=== PATIENT | female | born 1985 | race Caucasian/White ===

== ENCOUNTER 2021-05-26 15:26 | Outpatient (CLI) | payer MEDICAID, SELFPAY ==
[2021-05-26 16:22] LABS: Absolute Lymphocyte Count 2.86 X10^3/uL (0.83-4.51); Absolute Neutrophil Count 3.7 X10^3/uL (2.0-7.7); Basophil# 0.06 X10^3/uL; Basophil% 0.8 % (0-1); Eosinophil# 0.19 X10^3/uL; Eosinophils% 2.6 % (0-5); Hematocrit 47.1 % (37-47); Hemoglobin 16.2 g/dL (12.0-15.0); Lymphocyte # 2.86 X10^3/ul (0.83-4.51); Lymphocyte % 38.4 % (19-41); Mean Corp Hgb Conc 34.4 g/dL (32-36); Mean Corpuscular Hgb 33.1 pg (27.0-32.0); Mean Corpuscular Volume 96.3 fL (81-99); Mean Platelet Vol. 10.3 fl (6.2-12.0); Monocyte% 8.1 % (0-10); NRBC Flagged by Analyzer 0 % (0-5); Neutrophil # 3.72 X10^3/uL (2.7-7.7); Neutrophil % 49.8 % (47-70); Platelet Count 245 K/mm3 (150-450); RBC Distribution Width CV 12.3 % (11.6-14.6); Red Blood Count 4.89 M/mm3 (4.2-5.4); White Blood Count 7.5 K/mm3 (4.4-11.0)
[2021-05-26 16:42] LABS: Erythrocyte Sedimentation Rate 8 mm/hr (0-30)
[2021-05-26 16:47] LABS: Prothrombin Time (Protime)PT. 12.8 SECONDS (11.7-14.9)
[2021-05-26 17:06] LABS: ALB/GLOB Ratio 1.1 RATIO (0.9-2.4); AST(SGOT) 15 U/L (15-37); Alanine Aminotransfer ALT/SGPT 23 U/L (13-56); Albumin, Serum 4.5 g/dL (3.2-5.0); Alkaline Phosphatase 54 U/L (45-117); Anion Gap 7 (5-15); BUN 13 mg/dL (7-18); BUN/Creat Ratio 17.9 RATIO (10-20); CRP < 2.90 mg/L (0.0-3.0); Calcium,Total 9.1 mg/dL (8.5-10.1); Chloride 106 mmol/L (98-107); Creatinine, Serum 0.73 mg/dL (0.55-1.02); EST Glomerular Filtration Rate 96 mL/min (>60); Est Glom Filt Rate - Afr Amer 116 mL/min (>60); Ferritin 82 ng/mL (8-252); Globulin 4.2 g/dL (2.2-4.2); Glucose 89 mg/dL (74-106); LDH 211 U/L (84-246); Potassium 3.7 mmol/L (3.5-5.1); Protein, Total 8.7 g/dL (6.4-8.2); Sodium Level 140 mmol/L (136-145)
[2021-05-27 08:45] LABS: HIV - WCH Non-Reactive (Nonreactive)
[2021-05-28 14:09] LABS: Anti-Centromere B Ab <0.2 AI (0.0-0.9); Anti-Chromatin <0.2 AI (0.0-0.9); Anti-Jo <0.2 AI (0.0-0.9); Anti-Scleroderma-70 AB <0.2 AI (0.0-0.9); RNP Ab <0.2 AI (0.0-0.9); SJOGREN'S Anti-SS-A test < 0.2 AI (0.0-0.9); SJOGREN'S Anti-SS-B test < 0.2 AI (0.0-0.9); Smith Ab <0.2 AI (0.0-0.9)
[2021-05-28 14:42] LABS: Anti-dsDNA Ab 1 IU/mL (0-9)
[2021-05-28 20:46] LABS: Anti-Mitochondrial AB <20.0 Units (0.0-20.0)
[2021-05-28 22:06] LABS: QNTFERON TB Mitogen Value > 10.00 IU/mL (.); QNTFERON TB Nil Value 0.01 IU/mL (.); QNTFERON TB1+ Ag Value 0.01 IU/mL (.); QNTFERON TB2+ Ag Value 0.01 IU/mL (.)
[2021-05-28 22:45] LABS: QNTIFERON TB Positive Criteria Negative (Negative)
[2021-05-31 19:07] LABS: Angiotensin Convert Enzyme 42 U/L (14-82); Cytoplasmic Ab (C-ANCA) <1:20 titer (Neg:<1:20); Endomysial Antibody IgA Negative (Negative); HEPATITIS B SURFACE AG Negative (Negative); Hepatitis A IgM Antibody Negative (Negative); Hepatitis B Core AB IgM Negative (Negative); Immunoglobulin A 228 mg/dL (87-352)
[2021-05-31 20:45] LABS: Anti-Smooth Muscle ABS 1 Units (0-19); Copper, Serum or Plasma 104 ug/dL (80-158); Haptoglobin 163 mg/dL (33-278); Hep C Antibodies >11.0 s/co ratio (0.0-0.9); Perinuclear Ab (P-ANCA) <1:20 titer (Neg:<1:20); t-Transglutaminase IgA <2 U/mL (0-3)
== END 2021-05-26 23:59 | disposition home or self-care (01) ==
LOC: LAB 15:38
PROVIDERS: PCP Nurse Practitioner Family; Visit Provider Internal Medicine Gastroenterology
DX: B18.2 Chronic viral hepatitis C (principal); K21.9 Gastro-esophageal reflux disease without esophagitis
CPT/HCPCS: 36415; 80053; 80074; 82164; 82390; 82525; 82728; 82784; 83010; 83516; 83615; 85025; 85610; 85652; 86140; 86225; 86235; 86255; 86256; 86480; 86703

== ENCOUNTER 2021-06-23 15:20 | Outpatient (CLI) | payer MEDICAID, SELFPAY ==
[2021-06-23 17:21] LABS: Hepatitis C Antibody Preliminary Reactive (Nonreactive)
[2021-06-27 00:06] LABS: HCV Quant. RNA PCR 830 IU/mL (.)
[2021-06-27 10:45] LABS: HCV log 10 2.919 (.)
== END 2021-06-23 23:59 | disposition home or self-care (01) ==
LOC: LAB 15:22
PROVIDERS: PCP Nurse Practitioner Family; Referring Provider Internal Medicine Gastroenterology; Visit Provider Internal Medicine Gastroenterology
DX: B18.2 Chronic viral hepatitis C (principal)
CPT/HCPCS: 36415; 86803; 87522; 87902

== ENCOUNTER → 2021-11-10 | Outpatient (CLI) | payer MEDICAID, SELFPAY ==
[2021-11-12 20:07] LABS: HCV Quant. RNA PCR HCV Not Detected IU/mL (.)
== END | disposition home or self-care (01) ==
PROVIDERS: PCP Nurse Practitioner Family; Referring Provider Nurse Practitioner Adult Health; Visit Provider Nurse Practitioner Adult Health
DX: B18.2 Chronic viral hepatitis C (principal)
CPT/HCPCS: 36415; 87522

== ENCOUNTER → 2022-04-21 | Outpatient (CLI) | payer MEDICAID, SELFPAY ==
[2022-04-21 12:52] LABS: Absolute Lymphocyte Count 2.08 X10^3/uL (0.83-4.51); Basophil# 0.06 X10^3/uL; Basophil% 0.5 % (0-1); Eosinophils% 0.9 % (0-5); Hematocrit 47.1 % (37-47); Hemoglobin 15.7 g/dL (12.0-15.0); Lymphocyte # 2.08 X10^3/ul (0.83-4.51); Lymphocyte % 18.8 % (19-41); Mean Corp Hgb Conc 33.3 g/dL (32-36); Mean Corpuscular Hgb 32.8 pg (27.0-32.0); Mean Corpuscular Volume 98.3 fL (81-99); Mean Platelet Vol. 9.9 fl (6.2-12.0); Monocyte% 7.2 % (0-10); NRBC Flagged by Analyzer 0 % (0-5); Neutrophil # 7.97 X10^3/uL (2.7-7.7); Neutrophil % 72.2 % (47-70); Platelet Count 229 K/mm3 (150-450); RBC Distribution Width CV 12.6 % (11.6-14.6); Red Blood Count 4.79 M/mm3 (4.2-5.4); White Blood Count 11.1 K/mm3 (4.4-11.0)
[2022-04-21 13:59] LABS: HIV - WCH Non-Reactive (Nonreactive); Hepatitis B Surface Antigen Non-Reactive (Nonreactive); Hepatitis C Antibody REACTIVE (Nonreactive); Rubella IgG Reactive (Nonreactive); Syphilis Antibodies Non-reactive
[2022-04-22 20:07] LABS: V-Zoster IgG (Immunity) 544 index (Immune >165)
[2022-04-23 06:08] LABS: Chlamydia By Nucleic Acid AMP Negative (Negative)
[2022-04-23 10:23] LABS: Gonococcus By Nucleic Acid AMP Negative (Negative)
[2022-04-23 20:07] LABS: HCV Quant. RNA PCR HCV Not Detected IU/mL (.)
[2022-04-26 16:19] LABS: HPV APTIMA, High Risk Negative (Negative)
== END | disposition home or self-care (01) ==
LOC: WOBLAB 12:18
PROVIDERS: PCP Nurse Practitioner Family; Visit Provider Obstetrics & Gynecology
DX: Z34.81 Encounter for supervision of other normal pregnancy, first trimester (principal); K73.2 Chronic active hepatitis, not elsewhere classified
CPT/HCPCS: 36415; 85025; 86703; 86762; 86780; 86787; 86803; 87086; 87340; 87491; 87522; 87591; 87624; 88175; G0145

== ENCOUNTER → 2022-08-24 | Outpatient (CLI) | payer MEDICAID, SELFPAY ==
[2022-08-24 15:19] LABS: Hematocrit 32.5 % (37-47); Hemoglobin 10.7 g/dL (12.0-15.0); Mean Corp Hgb Conc 32.9 g/dL (32-36); Mean Corpuscular Hgb 32.7 pg (27.0-32.0); Mean Corpuscular Volume 99.4 fL (81-99); Mean Platelet Vol. 9.8 fl (6.2-12.0); Platelet Count 223 K/mm3 (150-450); RBC Distribution Width CV 13.4 % (11.6-14.6); RBC Distribution Width SD 48.6 fl (35.1-43.9); Red Blood Count 3.27 M/mm3 (4.2-5.4); White Blood Count 9.7 K/mm3 (4.4-11.0)
[2022-08-24 16:00] LABS: Glucose Challenge Gest 1H 50g 152 mg/dL (70-140)
[2022-08-24 16:27] LABS: Syphilis Antibodies Non-reactive
== END | disposition home or self-care (01) ==
LOC: WOBLAB 14:52
PROVIDERS: PCP Nurse Practitioner Family; Visit Provider Obstetrics & Gynecology
DX: Z34.82 Encounter for supervision of other normal pregnancy, second trimester (principal)
CPT/HCPCS: 36415; 82950; 85027; 86780

== ENCOUNTER → 2022-08-31 | Outpatient (CLI) | payer MEDICAID, SELFPAY ==
[2022-08-31 09:15] LABS: Glucose GTT-Gestation. Fasting 84 mg/dL (<105)
[2022-08-31 10:16] LABS: Glucose GTT-Gestational 1 Hr 157 mg/dL (<190)
[2022-08-31 11:26] LABS: Glucose GTT-Gestational 2 Hr 132 mg/dL (<165)
[2022-08-31 12:21] LABS: Glucose GTT-Gestational 3 Hr 58 L (<145)
== END | disposition home or self-care (01) ==
LOC: WOBLAB 08:35
PROVIDERS: PCP Nurse Practitioner Family; Visit Provider Obstetrics & Gynecology
DX: O24.912 Unspecified diabetes mellitus in pregnancy, second trimester (principal); Z3A.00 Weeks of gestation of pregnancy not specified
CPT/HCPCS: 36415; 82951; 82952

== ENCOUNTER → 2022-10-26 | Outpatient (CLI) | payer MEDICAID, SELFPAY ==
[2022-10-27 21:07] LABS: HCV Quant. RNA PCR HCV Not Detected IU/mL (.)
== END | disposition home or self-care (01) ==
LOC: WOBLAB 11:39
PROVIDERS: PCP Nurse Practitioner Family; Visit Provider Obstetrics & Gynecology
DX: B18.2 Chronic viral hepatitis C (principal)
CPT/HCPCS: 36415; 87522

== ENCOUNTER 2022-10-28 19:55 | Outpatient (CLI) | payer MEDICAID, SELFPAY ==
[2022-10-28 20:16] VITALS: BP 124/66; PULSE 74; PULSE 85; TEMP 37.3; O2SAT 97
[2022-10-28 20:27] VITALS: BMI 28.4
[2022-10-28 20:52] LABS: Color, Urine Yellow (Yellow); Glucose, Dipstick Normal (Normal); Ketone-Dipstick 50 mg/dl (Negative); Leukocyte Esterase-Dipstick Negative /ul (Negative); Nitrite-Dipstick Negative (Negative); Occult Blood-Urine Negative /ul (Negative); Protein-Dipstick Negative (Negative); Urine Bilirubin Dipstick Negative (Negative); Urine Clarity Clear (Clear); Urine Urobilinogen Normal (Normal)
[2022-10-28 21:21] LABS: ROM Internal Control Test YES-OK TO RESULT pt. (Internal QC); ROM Patient Test Negative (Negative); Record Kit Lot#, ROM+ K1374
--- NOTE | 2022-10-28 23:02 | OB.TRI.NOTE ---
HPI - General General Date of Service: 10/28/22 HPI Narrative MEGGAN FITZGERALD, is a 37 F who [facility] with contractions [facility] History (Updated 10/28/22 @ 23:[address] Nico Aguilera MD) Anxiety attack Cold sore Drug abuse in remission Herpes simplex Major depressive disorder, recurrent, moderate Metabolic syndrome Unspecified viral hepatitis C without hepatic coma Home Medications fluoxetine 10 mg tablet See Rx Instructions PO DAILY 05/26/21 [History Last Taken Unknown] hydroxyzine pamoate 25 mg capsule (Vistaril) See Rx Instructions PO .COMPLEX 05/26/21 [History Last Taken Unknown] valacyclovir 500 mg tablet 500 mg PO BID PRN 05/26/21 [History Last Taken Unknown] rtnghrxi-ebn-Zy-FA 1 mg tablet 1 tab PO DAILY 10/28/22 [History Last Taken 10/27/22 21:00] Allergy/AdvReac Type Severity Reaction Status Date / Time No Known Allergies Allergy Verified 10/28/22 20:27 Family History (Updated 05/26/21 @ 08:15 by Ada Harp) Aunt Cancer Sister Hypertension Surgical History (Updated 05/26/21 @ 08:15 by Ada Harp) H/O breast augmentation Social History (Updated 05/26/21 @ 08:17 by Ada Harp) number of children: 4 Smoking Status: Current every day smoker tobacco type: cigarettes alcohol intake: current alcohol intake frequency: holidays/special occasions only substance use type: does not use caffeine: Yes NST FHR Rate Baby A Baseline: 130 Variability:: Moderate Accelerations:: 15 x 15 Decelerations:: None NST Reactive:: Yes Uterine Activity:: Every 3 to 8 minutes Assessment & Plan (1) : PLAN: Called by nursing patient with contractions leakage of fluid. Informed by nursing that ROM negative. Patient overall comfortable in bed but with contractions. Patient seen and examined resting comfortably in bed contractions palpate mild. Per nursing cervical exam unchanged, previously checked in the office on Monday with same cervical exam. Educated patient on findings discussed with patient and partner options for repeat cervical exam versus at home monitoring, lives within 30 minutes of the hospital. Offered repeat cervical exam but patient declines at this time wishes to DC home.
== END 2022-10-28 23:12 | disposition home or self-care (01) ==
LOC: WPOUT 20:00 → WP 20:01
PROVIDERS: PCP Nurse Practitioner Family; Visit Provider Obstetrics & Gynecology
DX: O62.4 Hypertonic, incoordinate, and prolonged uterine contractions (principal); F33.1 Major depressive disorder, recurrent, moderate; O98.519 Other viral diseases complicating pregnancy, unspecified trimester; O99.330 Smoking (tobacco) complicating pregnancy, unspecified trimester; O99.340 Other mental disorders complicating pregnancy, unspecified trimester; O42.90 Premature rupture of membranes, unspecified as to length of time between rupture and onset of labor, unspecified weeks of gestation; F17.210 Nicotine dependence, cigarettes, uncomplicated; F41.9 Anxiety disorder, unspecified; B00.9 Herpesviral infection, unspecified; Z3A.00 Weeks of gestation of pregnancy not specified; Z79.899 Other long term (current) drug therapy
CPT/HCPCS: 59025; 59050; 81002; 84112; 99221; G0378

== ENCOUNTER → 2022-11-09 | Outpatient (CLI) | payer MEDICAID, SELFPAY ==
[2022-11-09 15:02] LABS: Hematocrit 38.1 % (37-47); Mean Corp Hgb Conc 34.1 g/dL (32-36); Mean Corpuscular Hgb 33.9 pg (27.0-32.0); Mean Corpuscular Volume 99.5 fL (81-99); Mean Platelet Vol. 10.8 fl (6.2-12.0); Platelet Count 215 K/mm3 (150-450); RBC Distribution Width CV 13.4 % (11.6-14.6); RBC Distribution Width SD 48.1 fl (35.1-43.9); Red Blood Count 3.83 M/mm3 (4.2-5.4); White Blood Count 11.1 K/mm3 (4.4-11.0)
[2022-11-09 15:28] LABS: ALB/GLOB Ratio 0.7 RATIO (0.9-2.4); AST(SGOT) 12 U/L (15-37); Alanine Aminotransfer ALT/SGPT 10 U/L (13-56); Albumin, Serum 2.9 g/dL (3.2-5.0); Alkaline Phosphatase 140 U/L (45-117); Anion Gap 6 (5-15); BUN 8 mg/dL (7-18); BUN/Creat Ratio 17.2 RATIO (10-20); Calcium,Total 9.1 mg/dL (8.5-10.1); Chloride 108 mmol/L (98-107); Creatinine, Serum 0.47 mg/dL (0.55-1.02); EST Glomerular Filtration Rate 159 mL/min (>60); Est Glom Filt Rate - Afr Amer 192 mL/min (>60); Globulin 4.2 g/dL (2.2-4.2); Glucose 69 mg/dL (74-106); Potassium 3.9 mmol/L (3.5-5.1); Protein, Total 7.1 g/dL (6.4-8.2); Sodium Level 136 mmol/L (136-145)
== END | disposition home or self-care (01) ==
PROVIDERS: PCP Nurse Practitioner Family; Referring Provider Obstetrics & Gynecology; Visit Provider Obstetrics & Gynecology
DX: Z34.83 Encounter for supervision of other normal pregnancy, third trimester (principal); Z36.85 Encounter for antenatal screening for Streptococcus B; B19.20 Unspecified viral hepatitis C without hepatic coma
CPT/HCPCS: 36415; 80053; 85027; 87081

== ENCOUNTER 2022-11-25 19:53 | Inpatient (IN) | payer MEDICAID, SELFPAY ==
[2022-11-25] VITALS (11 sets, daily range): BP systolic 119–142; BP diastolic 55–79; PULSE 66–87; TEMP 36.7; O2SAT 91–99; BMI 29.2
[2022-11-25 20:33] LABS: Absolute Lymphocyte Count 1.58 X10^3/uL (0.83-4.51); Absolute Neutrophil Count 11.4 X10^3/uL (2.0-7.7); Basophil# 0.07 X10^3/uL; Basophil% 0.5 % (0-1); Eosinophil# 0.05 X10^3/uL; Eosinophils% 0.4 % (0-5); Hematocrit 40.8 % (37-47); Hemoglobin 13.7 g/dL (12.0-15.0); Lymphocyte # 1.58 X10^3/ul (0.83-4.51); Lymphocyte % 11.2 % (19-41); Mean Corp Hgb Conc 33.6 g/dL (32-36); Mean Corpuscular Hgb 33.2 pg (27.0-32.0); Mean Corpuscular Volume 98.8 fL (81-99); Mean Platelet Vol. 10.6 fl (6.2-12.0); Monocyte% 6.4 % (0-10); NRBC Flagged by Analyzer 0 % (0-5); Neutrophil % 80.7 % (47-70); Platelet Count 205 K/mm3 (150-450); RBC Distribution Width CV 13.5 % (11.6-14.6); RBC Distribution Width SD 48.7 fl (35.1-43.9); Red Blood Count 4.13 M/mm3 (4.2-5.4); White Blood Count 14.1 K/mm3 (4.4-11.0)
[2022-11-25] MEDS: Oxytocin 15 Units/NS 250ml 15 UNITS/250 ML IV.SOLN 83 UNITS IV (20:48)
[2022-11-25] MEDS: Oxytocin 10 UNITS/ML Vial IM (20:48)
--- NOTE | 2022-11-25 21:05 | HP.PCM.OB_ITS ---
History and Physical Date of Admission: 11/25/22 HPI: 37-year-old G6, P4 at 38/2 weeks, CLIFTON 12/07/2022 by first trimester ultrasound, admitted for rupture of membranes in labor. Patient had rupture membranes this evening. Reports regular contractions. Denies vaginal bleeding. Reports movement. Denies headache or vision changes, chest pain or shortness of breath, nausea or vomiting, diarrhea constipation, fevers or chills. complicated by: History of hepatitis C with undetectable viral load, 0.5 cm splenic cyst being followed by Dr. Tay, tobacco use, advanced maternal age, failed 1 hour GTT passed 3hr. Oral HSV. 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 Hepatitis C with undetectable viral load 2. Splenic cyst 3. Depression and anxiety Surgical history: 1. Breast augmentation in 2009 Medications: 1. Fluoxetine 10 mg 2. Hydroxyzine 25 mg as needed 3. vitamin Allergies: No known drug allergies Social history: Reports tobacco use. Denies alcohol or drug use Family history: Noncontributory Review of system: Negative otherwise stated above Physical exam: Vital signs: General: Patient uncomfortable with contractions resting between HEENT: Normal cephalic/atraumatic Cardiorespiratory: No increased effort Abdomen: Soft, nontender, gravid Extremities: No edema Neurologic: No focal deficits Musculoskeletal: Moves all extremities equally Cervical exam: On admission 6 cm and grossly ruptured per RN heart rate: 145/mod kenroy/+accel/intermittent early and late deceleration toco: q2 Assessment/Plan: 37-year-old G6, P4 at 38/2 weeks, [place] 12/07/2022 by first trimester ultrasound, admitted for rupture of membranes and labor. complicated by: History of hepatitis C with undetectable viral load, 0.5 cm splenic cyst being followed by Dr. Tay, tobacco use, advanced maternal age, failed 1 hour GTT passed 3hr. Oral HSV. ?Admit for labor ? GBS negative ? Hepatitis C, stable ? Splenic cyst stable ? Tobacco use. Encourage cessation ? AMA ? Failed 1 hour glucose tolerance test, passed 3-hour. ? History of oral HSV, no outbreak currently
[2022-11-25 21:06] LABS: Syphilis Antibodies Non-reactive
--- NOTE | 2022-11-25 21:13 | EX.PCM.OBRPT ---
Maternal Data Information Final CLIFTON: 11/25/22 Final CLIFTON Source: US <20 weeks Vaginal Delivery Operative Information Date of Procedure: 11/25/22 Pre-Operative Diagnosis: Enriquez intrauterine , rupture of membranes Post-Operative Diagnosis: Enriquez intrauterine , rupture of membranes Surgery / Procedure Performed: Spontaneous Vaginal Delivery Type of Anesthesia: None Estimated Blood Loss: 250cc Findings Description of Procedure: Spontaneous vaginal delivery of viable infant. Nuchal cord x1, unable to reduce, delivered through. Baby to mom. Cord clamped and cut. Spontaneous delivery of placenta. Right labial laceration. Lidocaine injected, hemostatic with [id number] sutures. A Gender: Female (1 minute): 7 (5 minute): 9 Delayed Cord Clamping: Yes Complication Complications: None
[2022-11-26] VITALS (10 sets, daily range): BP systolic 108–143; BP diastolic 55–69; PULSE 60–83; RESP 14–18; TEMP 36.2–36.6; O2SAT 94–96
[2022-11-26] MEDS: Ibuprofen 600 MG Tablet PO ×2 (07:45→16:21)
[2022-11-26] MEDS: Benzocaine/Lanolin/Aloe Vera 1 SPRAY EACH TOPICAL (07:45)
--- NOTE | 2022-11-26 08:03 | EKG12_ITS ---
Test Reason : CHEST TIGHTNESS/SOB ON EXERTION Blood Pressure : / mmHG Vent. Rate : 074 BPM Atrial Rate : 074 BPM P-R Int : 150 ms QRS Dur : 082 ms QT Int : 378 ms P-R-T Axes : 068 072 059 degrees QTc Int : 419 ms Normal sinus rhythm Normal ECG No previous ECGs available Confirmed by EVGENY SANDHU ([id number]), editor continuity and script EDY JUDD ([id number]) on 12/06/2022 9:43:37 AM Referred By: Ursula Aguilera Confirmed By:EVGENY SANDHU
--- NOTE | 2022-11-26 08:06 | PN.OBGYN_ITS ---
Subjective Subjective Patient feeling well overall. Lochia minimal. Reports that when she is up moving around she has a little bit of chest pressure and shortness of breath, however when she is seated and resting she feels comfortable without any issues. Denies any headache or vision changes, no dizziness. Objective Data Objective Data Vital Signs: Vital Signs Temp Pulse Resp BP Pulse Ox O2 Del Method 97.8 F 83 14 125/69 H 96 Room Air 11/26/22 07:51 11/26/22 07:51 11/26/22 07:51 11/26/22 07:51 11/26/22 07:51 11/26/22 07:51 Oxygen Delivery Method Room Air Weight: 74.843 kg Body Mass Index (BMI) 29.2 Intake & Output: Intake and Output for Last 24 Hours 11/24/22 11/25/22 11/26/22 23:59 23:59 23:59 Intake Total 250 / 250 Output Total 250 / 250 Balance -250 / -250 250 / 250 Lab / Micro Data Attestation: I reviewed the patient's lab results. 11/25/22 20:15 Labs: Laboratory Results - last 24 hr 11/25/22 20:15: WBC 14.1 H, RBC 4.13 L, Hgb 13.7, Hct 40.8, MCV 98.8, MCH 33.2 H , MCHC 33.6, RDW Std Deviation 48.7 H, RDW Coeff of Hilary 13.5, Plt Count 205, MPV 10.6, Immature Gran % (Auto) 0.800, Neut % (Auto) 80.7 H, Lymph % (Auto) 11.2 L, [place] % (Auto) 6.4, Eos % (Auto) 0.4, Baso % (Auto) 0.5, Absolute Neuts (auto) 11.4 H, Absolute Lymphs (auto) 1.58, Nucleated RBC % 0, Syphilis Total Ab Non- reactive, Blood Type A POSITIVE, Antibody Screen NEGATIVE Micro: Microbiology 11/26/22 01:15 Urine, Clean Catch Neisseria gonorrhoeae (PCR) - Final Physical Exam Const alert, oriented x3 and no apparent distress HEENT normocephalic Chest inspection of chest normal Resp normal respiratory effort, no retractions, no use of accessory muscles and clear to auscultation bilaterally Cardio regular rate, regular rhythm, no murmurs, no rub and no gallops GI soft to palpation and non-tender Inspection: gravid Back/Spine normal ROM Extremity no pedal edema Skin no rashes or lesions noted Neuro no focal motor deficits and no sensory deficits noted Psych mental status grossly normal, affect normal and speech normal Assessment & Plan (1) Vaginal delivery: PLAN: day 1 status post . Complicated by hepatitis C and splenic cyst. When up moving around patient having some chest pressure and shortness of breath. Exam within normal limits. Oxygen saturation within normal limits. Will get CBC and an EKG. No evidence of PE at this time. If symptoms are persistent, may consider CT angiogram of the chest. Reviewed this with bedside nurse, patient and her partner. All questions answered. (2) Chronic viral hepatitis C:
[2022-11-26 08:23] LABS: Absolute Lymphocyte Count 1.46 X10^3/uL (0.83-4.51); Absolute Neutrophil Count 10.3 X10^3/uL (2.0-7.7); Basophil# 0.05 X10^3/uL; Basophil% 0.4 % (0-1); Eosinophil# 0.03 X10^3/uL; Eosinophils% 0.2 % (0-5); Hematocrit 35.7 % (37-47); Hemoglobin 12.3 g/dL (12.0-15.0); Lymphocyte # 1.46 X10^3/ul (0.83-4.51); Lymphocyte % 11.3 % (19-41); Mean Corp Hgb Conc 34.5 g/dL (32-36); Mean Corpuscular Hgb 33.8 pg (27.0-32.0); Mean Corpuscular Volume 98.1 fL (81-99); Mean Platelet Vol. 10.2 fl (6.2-12.0); Monocyte# 0.95 X10^3/uL; Monocyte% 7.4 % (0-10); NRBC Flagged by Analyzer 0 % (0-5); Neutrophil # 10.32 X10^3/uL (2.7-7.7); Neutrophil % 80.2 % (47-70); Platelet Count 200 K/mm3 (150-450); RBC Distribution Width CV 13.3 % (11.6-14.6); Red Blood Count 3.64 M/mm3 (4.2-5.4); White Blood Count 12.9 K/mm3 (4.4-11.0)
[2022-11-27 01:55] VITALS: BP 128/74; PULSE 65; PULSE 67; RESP 14; TEMP 36.4; O2SAT 97
[2022-11-27] MEDS: Ibuprofen 600 MG Tablet PO (02:05)
--- NOTE | 2022-11-27 03:23 | PCM.DC.BLA ---
Discharge Summary Date of Admission: 11/25/22 Date of Discharge: 11/27/22 Summary: Patient arrived in labor on 11/25/2022. Subsequently delivered vaginally on 11/25/2022. Patient with chest pain on day 1 sinus EKG and normal CBC resolved prior to discharge. Routine recovery otherwise. Discharged home on 11/27/2022 Meaningful Use Info Meaningful Use Diagnoses (Choose all that apply): None applicable Discharge Plan Admission Admit Date/Time: 11/25/22 19:53 Primary Reason for Your Visit: Labor Attending Provider: Ursula Aguilera Primary Care Provider: Steph Harvey NP Instructions Additional Instructions / Restrictions: Regular diet. Okay to shower. Weightbearing as tolerated. No intercourse for 6 to 8 weeks. Call if fevers, chills, chest pain, shortness of breath. Follow-up 3 to 4 weeks Discharge Orders/Prescriptions Prescriptions: No Action valacyclovir 500 mg tablet 500 mg PO BID PRN hydroxyzine pamoate [Vistaril] 25 mg capsule See Rx Instructions PO .COMPLEX Rx Instructions: UNKNOWN PO UNKNOWN; fluoxetine 10 mg tablet See Rx Instructions PO DAILY Rx Instructions: UNKNOWN PO daily; egcbbfyb-uyk-Bo-FA 1 mg tablet 1 tab PO DAILY Referrals / Follow Up: Steph Harvey NP, [employer] LEAD[employer] PROCESSING-C [Primary Care Provider] - Disposition Disposition (needs filled in before D/C Order can be placed): Home, Self Care
--- NOTE | 2022-11-27 03:25 | PN.OBGYN_ITS ---
Subjective Subjective No overnight complaints. Chest pain resolved. Denies chest pain, shortness of breath, nausea vomit, dizziness, weakness Objective Data Objective Data Vital Signs: Vital Signs Temp Pulse Resp BP Pulse Ox O2 Del Method 97.6 F L 65 14 128/74 H 97 Room Air 11/27/22 01:55 11/27/22 01:55 11/27/22 01:55 11/27/22 01:55 11/27/22 01:55 11/27/22 01:55 Oxygen Delivery Method Room Air Weight: 165 lb Body Mass Index (BMI) 29.2 Intake & Output: Intake and Output for Last 24 Hours 11/25/22 11/26/22 11/27/22 23:59 23:59 23:59 Intake Total 950 / 950 Output Total 250 / 250 Balance -250 / -250 950 / 950 Lab / Micro Data 11/26/22 08:10 Labs: Laboratory Results - last 24 hr 11/26/22 08:10: WBC 12.9 H, RBC 3.64 L, Hgb 12.3, Hct 35.7 L, MCV 98.1, MCH 33.8 H, MCHC 34.5, RDW Std Deviation 48.0 H, RDW Coeff of Hilary 13.3, Plt Count 200, MPV 10.2, Immature Gran % (Auto) 0.500, Neut % (Auto) 80.2 H, Lymph % (Auto) 11.3 L, [place] % (Auto) 7.4, Eos % (Auto) 0.2, Baso % (Auto) 0.4, Absolute Neuts (auto) 10.3 H, Absolute Lymphs (auto) 1.46, Nucleated RBC % 0 Micro: Microbiology 11/26/22 01:15 Urine, Clean Catch Neisseria gonorrhoeae (PCR) - Final Physical Exam Const alert, oriented x3, no apparent distress, average body habitus, healthy appearing and well nourished HEENT normocephalic and moist oral mucous membranes Eyes PERRL Neck full ROM Resp normal respiratory effort, no retractions and no use of accessory muscles GI GI Narrative: Soft, nontender, uterus firm and below umbilicus Extremity normal to inspection, full ROM and no clubbing, cyanosis or edema Neuro moves all extremities and no focal motor deficits Psych mental status grossly normal, affect normal, speech normal and activity/motor behavior normal Assessment & Plan (1) Vaginal delivery: PLAN: day 2. Chest pain resolved, EKG sinus rhythm CBC within normal limits. Asymptomatic. Hepatitis C will follow-up . Okay to discharge home today
[2022-11-27 07:20] VITALS: BP 121/71; PULSE 77; O2SAT 96
[2022-11-27 07:31] VITALS: BP 121/71; PULSE 74; RESP 16; TEMP 36.6; O2SAT 96
[2022-11-27] MEDS: Senna/Docusate Sodium 1 Tablet PO (08:19)
== END 2022-11-27 08:50 | disposition home or self-care (01) | DRG 560 ==
LOC: WPOUT 19:59 → WP 19:59
PROVIDERS: Admitting Provider Student in an Organized Health Care Education/Training Program; PCP Nurse Practitioner Family; Referring Provider Student in an Organized Health Care Education/Training Program; Visit Provider Student in an Organized Health Care Education/Training Program
DX: O98.42 Viral hepatitis complicating childbirth (principal); Z37.0 Single live birth; B18.2 Chronic viral hepatitis C; O70.0 First degree perineal laceration during delivery; O69.81X0 Labor and delivery complicated by cord around neck, without compression, not applicable or unspecified; Z3A.38 38 weeks gestation of pregnancy
CPT/HCPCS: 59025; 59050; 85025; 86780; 86850; 86900; 86901; 87591; 93005; 99221; 99406; G0378

== ENCOUNTER → 2023-10-11 | Outpatient (CLI) | payer MEDICAID, SELFPAY ==
[2023-10-11 14:58] LABS: Erythrocyte Sedimentation Rate 2 mm/hr (0-30)
[2023-10-11 15:26] LABS: CRP < 2.90 mg/L (0.0-3.0); Ferritin 74 ng/mL (8-252); Iron Binding Capacity,Total 336 ug/dL (250-450); LDH 155 U/L (84-246)
[2023-10-16 16:09] LABS: ACCA 0 units (0-90); ALCA 3 units (0-60); AMCA 26 units (0-100); Albumin 4.1 g/dL (2.9-4.4); Alpha-1-Globulins 0.2 g/dL (0.0-0.4); Alpha-2-Globulins 0.7 g/dL (0.4-1.0); Cytoplasmic Ab (C-ANCA) <1:20 titer (Neg:<1:20); Endomysial Antibody IgA Negative (Negative); HCV Quant. RNA PCR HCV Not Detected IU/mL (.); Immunoglobulin A 142 mg/dL (87-352); Immunoglobulin G 964 mg/dL (586-1602); Immunoglobulin M 182 mg/dL (26-217); Perinuclear Ab (P-ANCA) <1:20 titer (Neg:<1:20); gASCA 5 units (0-50); t-Transglutaminase IgA <2 U/mL (0-3)
== END | disposition home or self-care (01) ==
PROVIDERS: PCP Nurse Practitioner Family; Referring Provider Internal Medicine Gastroenterology; Visit Provider Internal Medicine Gastroenterology
DX: B18.2 Chronic viral hepatitis C (principal); K21.9 Gastro-esophageal reflux disease without esophagitis
CPT/HCPCS: 36415; 82728; 82784; 83516; 83550; 83615; 84165; 85652; 86003; 86005; 86036; 86140; 86225; 86235; 86255; 86256; 86334; 86671; 87522

== ENCOUNTER → 2023-10-31 | Outpatient (CLI) | payer MEDICAID, SELFPAY ==
--- NOTE | 2023-10-31 14:55 | CT_ITS ---
STUDY: CT ABDOMEN AND PELVIS WITH CONTRAST REASON FOR EXAM: Female, 38 years old. Abdominal pain and chronic hepatitis c RADIATION DOSAGE (If Supplied By Facility): CTDIvol = ( 11.70 ) mGy, DLP = ( 743.00 ) mGycm TECHNIQUE: Transaxial images were obtained from the dome of the diaphragm to the symphysis pubis with oral contrast. Oral and amp; IV Readi-CAT and amp; 100mL Isovue-300 was administered. Sagittal and coronal images were reconstructed. Individualized dose optimization techniques were used for this CT. COMPARISON: None. FINDINGS: There is evidence of bilateral breast implants. The right breast is larger than the left. The visualized lung bases are unremarkable. The visualized portions of the heart are within normal limits. There is hepatomegaly with diffuse hepatic enlargement. Normal gallbladder and extrahepatic biliary system. Normal spleen. Normal pancreas. Normal bilateral adrenal glands. Normal right kidney. Normal left kidney. Normal visualized stomach. Normal small intestine. There are scattered colonic diverticula consistent with diverticulosis. The appendix is visualized and appears normal. Normal abdominal aorta. Normal inferior vena cava. Normal retroperitoneum. Normal urinary bladder. Normal abdominal wall. Normal osseous structures. CT/Abdomen/Pelvis WITH Contrast IMPRESSION: Hepatomegaly. Sigmoid diverticulosis. Electronically Signed: Jin Pimentel MD at 15:21 EDT ,
== END | disposition home or self-care (01) ==
LOC: CT 14:41
PROVIDERS: PCP Nurse Practitioner Family; Referring Provider Internal Medicine Gastroenterology; Visit Provider Internal Medicine Gastroenterology
DX: B18.2 Chronic viral hepatitis C (principal); K21.9 Gastro-esophageal reflux disease without esophagitis
CPT/HCPCS: 74177; Q9967

== ENCOUNTER 2023-11-15 07:20 | Day surgery (SDC) | payer MEDICAID, SELFPAY ==
[2023-11-15] VITALS (9 sets, daily range): BP systolic 97–111; BP diastolic 56–60; PULSE 56–78; RESP 16; TEMP 36.4–37.3; O2SAT 94–99; BMI 24.4
--- NOTE | 2023-11-15 | EGD_PTH ---
PATIENT: MEGGAN FITZGERALD LOC: EN U#:[id number] AGE/SX: 38/F ROOM: RE11/15/[address]: Dr. Tyson Tay DO : 1985 BED: DIS: 11/15/2023 SPEC #: [id number] RECD: 11/15/23 13:15 STATUS: MINDY HUBERT #: [id number] LADY: 11/15/23 00:[address]: Tyson Tay DEPT: SURGICAL PATHOLOGY RECD BY: Rome Martinez ENTERED: 11/15/23 13:15 SP TYPE: EGD BIOPSY SARAH DR: Steph Harvey, PLASMA PROCESSING TECHNICIAN-C Tissues: Duodenum, NOS Procedures: Surgery Specimen Level IV HEADER OPERATION: EGD biopsy PRE-OP DIAGNOSIS: Abdominal pain, GERD TISSUE SUBMITTED: Duodenum biopsy MICROSCOPIC DIAGNOSIS Duodenum, biopsy: Fragments of duodenal mucosa, no pathologic diagnosis. Fragments of gastric mucosa with moderate chronic active gastritis. See comment. RADHA/mr 11/16/2023 COMMENT The results of immunohistochemistry for Helicobacter pylori will be reported separately ([id number]). Case has been reviewed in consultation with Dr. Hill who concurs with the above diagnosis. IDC:AM MICROSCOPIC DESCRIPTION Slides are reviewed. GROSS DESCRIPTION Received in fixative is one container labeled with the patient's name and designated Duodenum [facility]. The specimen consists of multiple irregular fragments of light hernandez soft tissue that in aggregate measure 2.0 x 0.6 x 0.1 cm. The specimen is totally submitted in one cassette. EDIN/ 11/15/2023 TC:2 CPT:38688
--- NOTE | 2023-11-15 | IMM_PTH ---
PATIENT: MEGGAN FITZGERALD LOC: EN U#:[id number] AGE/SX: 38/F ROOM: RE11/15/[address]: Dr. Tyson Tay DO : 1985 BED: DIS: 11/15/2023 SPEC #: [id number] RECD: 11/16/23 11:59 STATUS: MINDY REQ #: [id number] LADY: 11/15/23 00:[address]: Tyson Tay DEPT: IMMUNOHISTOCHEMISTRY RECD BY: Selvin Davalos ENTERED: 11/16/23 11:59 SP TYPE: IMMUNO OTHR DR: Steph Harvey, HVAC ENGINEERING TECHNICIAN-C Tissues: Duodenum, NOS Procedures: H Pylori (initial) PHYSICIAN & INSTITUTION [place] [id number] SPECIMEN INFORMATION: Tissue Source: Duodenum biopsy Clinical Info: Abdominal pain, GERD Specimen Number: [id number] CPT code: 77496 METHODOLOGY: Deparaffinized sections of prefer/formalin-fixed tissue or PAP/DQ stained slides are incubated with monoclonal/polyclonal antibodies/oligonucleotide probes. Localization is made via biotin free immunoperoxidase method. Appropriate controls are performed and reacted as expected. Results on target cell population are indicated in the following table: RESULTS: ANTIBODY / CLONE RESULT H Pylori (polyclonal) positive These tests were developed and their performance characteristics determined by [facility]. They may not have been cleared or approved by the U.S. Food and Drug Administration. The FDA has determined that such clearance or approval is not necessary. The above immunohistochemical/dualISH markers are ordered and reviewed by the Pathologist. INTERPRETATION: Duodenum, biopsy: Fragments of gastric mucosa, positive for numerous H.pylori organisms. RADHA/ 11/17/2023
--- NOTE | 2023-11-15 07:41 | PRE.ANES_ITS ---
ASA Classification* ASA Classification ASA Classification: 2 Assessment & Plan Anesthesia* Anesthesia Assessment Anesthesia Assessment: Discussed sedation and/or anesthesia options, risks, benefits, and alternatives with patient/parents/legal guardian/POA. Questions invited. The patient/parents/legal guardian/POA seems to understand and agrees to proceed with anesthesia plan. Reviewed the physical assessment, medical history, allergy history and patient home medications list prior to surgery/procedure/anesthetic and documented any changes. Performed airway and anesthesia risk assessments. Anesthesia Type Anesthesia Type: MAC Anesthesia Focused Assessment* Temperature: 97.6 F Pulse Rate: 78 Blood Pressure: 111/58 Respiratory Rate: 16 Pulse Ox: 98 Airway Assessment Mouth opens: >3 cm Mallampati Score: II Focused Labs Anesthesia Preop lab: CBC WBC 12.9 K/mm3 (4.4-11.0) H 11/26/22 08:10 RBC 3.64 M/mm3 (4.2-5.4) L 11/26/22 08:10 Hgb 12.3 g/dL (12.0-15.0) 11/26/22 08:10 Hct 35.7 % (37-47) L 11/26/22 08:10 Plt Count 200 K/mm3 (150-450) 11/26/22 08:10 CHEMISTRY Potassium 3.9 mmol/L (3.5-5.1) 11/09/22 13:53 Sodium 136 mmol/L (136-145) 11/09/22 13:53 BUN 8 mg/dL (7-18) 11/09/22 13:53 Creatinine 0.47 mg/dL (0.55-1.02) L 11/09/22 13:53 Glucose 69 mg/dL (74-106) L 11/09/22 13:53 COAG PT 12.8 SECONDS (11.7-14.9) 05/26/21 15:44 Urine Test Pending 11/15/23 07:30 Pre-Assessment Diagnosis/Proposed Procedure Planned Operative Procedure(s): EGD Anesthesia History 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 When Was Last Pacemaker Check QUESTION #4 FULL TEXT: You/Your Family Experience fever (hyperthermia) with Anesthesia Last Oral Intake Last Oral intake: Last Oral Intake NPO since 00:00 11/15/23 07:38 Meds taken in AM with sips of water? Meds patient instructed to take am of surgery PONV PONV - tiltrotor crew chief: PONV - tiltrotor crew chief Female Yes 11/10/23 15:23 HX of Motion Sickness No 11/10/23 15:23 HX of N/V After Surgery No 11/10/23 15:23 Non-Smoker No 11/10/23 15:23 Duration of Surgery greater No 11/10/23 15:23 than 60 minutes Number of Risk Factors 1 11/10/23 15:23 PONV Score Low Risk 11/10/23 15:23 Height & Weight Height & Weight: Anesthesia: Height & Weight Height 5 ft 3 in 11/15/23 07:38 Weight: 62.596 kg 11/15/23 07:38 Body Mass Index (BMI) 24.4 11/15/23 07:38 Respiratory Assessment Respiratory Assessment - tiltrotor crew chief: Respiratory Tract Infection Hx - tiltrotor crew chief Hx Respiratory Tract Infection No 11/10/23 15:23 STOP Sleep Apnea STOP Sleep Apnea - tiltrotor crew chief: STOP Sleep Apnea - tiltrotor crew chief Hx Hypertension No 11/10/23 15:23 Hx Sleep Apnea No 11/10/23 15:23 CPAP BIPAP Do you snore loudly (louder No 11/10/23 15:23 than talking or can be heard Do you often feel tired/ No 11/10/23 15:23 fatigued/ sleepy during daytime? Has anyone observed you stop No 11/10/23 15:23 breathing during sleep? STOP Results Negative 11/10/23 15:23 QUESTION #5 FULL TEXT : Do you snore loudly (louder than talking or can be heard through closed doors)? Tobacco Use History Tobacco Use History - tiltrotor crew chief: Tobacco Use History - tiltrotor crew chief Tobacco Use Smoking Status Light Smoker (<10/day) 11/10/23 15:23 Hx Tobacco Use Yes 11/10/23 15:23 Years Smoking Packs Smoked per Day Smoking Cessation Date was within the last 15 years Hx Smoking Cessation Date Hx Smoking Cessation Counseling Hematologic Medial History Hematologic Hx - tiltrotor crew chief: Hematologic Medical Hx - hide salter Hx of Blood Transfusion No 11/10/23 15:23 Hx of Transfusion in last 3 No 11/10/23 15:23 Months Date of Last Transfusion (if within last 3 months) Ever experience any problems No 11/10/23 15:23 with transfusion(s)? Specify any problems Hx of Preganancy in last 3 No 11/10/23 15:23 Months Nurse Filling Out Transfusion DSCHRIBER 11/10/23 15:23 & Questions: Date: 11/10/23 11/10/23 15:23 Time: 15:25 11/10/23 15:23 Patient unable to answer at this time (ie. confused, unrespo /Reproduction History /Reproductive History - tiltrotor crew chief: /Reproductive Hx- tiltrotor crew chief Hx Now No 11/10/23 15:23 Gestational Age (in weeks): EDC: Hx Hx Para Hx Section SAB No 11/10/23 15:23 Active Medications Active Medications: Current Medications Generic Name Dose Route Start Last Admin Trade Name Freq PRN Reason Stop Dose Admin Lactated Ringer's 1,000 mls @ 15 mls/hr 11/15/23 07:30 IV .Q48H SHAQ PFSH Medical History (Updated 11/10/23 @ 15:30 by Svetlana Hernandez) Low iron Easy bruising Back pain Injury of head and neck History of ulceration Gastric reflux Smoker Herpes simplex Unspecified viral hepatitis C without hepatic coma Metabolic syndrome Drug abuse in remission Major depressive disorder, recurrent, moderate Anxiety attack Home Medications ?Medication ?Instructions ?Recorded ?Last Taken ?Type valacyclovir 500 mg tablet 500 mg PO BID PRN cold sores 05/26/21 Unknown History norethindrone (contraceptive) 0.35 0.35 mg PO DAILY 11/10/23 Unknown History mg tablet Allergy/AdvReac Type Severity Reaction Status Date / Time shellfish derived Allergy Other Verified 11/15/23 07:36 Family History (Updated 05/26/21 @ 08:15 by Ada Harp) Aunt Cancer Sister Hypertension Surgical History (Updated 11/10/23 @ 15:30 by Svetlana Hernandez) Hx of esophagogastroduodenoscopy H/O breast augmentation Social History (Updated 05/26/21 @ 08:17 by Ada Harp) number of children: 4 Smoking Status: Light Smoker (<10/day) alcohol intake: current alcohol intake frequency: holidays/special occasions only substance use type: does not use caffeine: Yes Review of Systems (Anesthesia) ROS Narrative System reviewed and no additional complaints, except as documented.
[2023-11-15] MEDS: Lactated Ringers 1,000 ML 15 ML IV (07:44)
[2023-11-15 07:51] LABS: Internal QC Validated? YES +Cl - CLEAR BKGD; Pregnancy, Urine Negative Negative
--- NOTE | 2023-11-15 08:12 | PCM.HP.BLA ---
History and Physical Date of Admission: 11/15/23 MEGGAN FITZGERALD, is a 38 F who presents to the office today for follow up. OV 6.. pt reports that she has occasional sharp pains on her L side and burning in her stomach. Pt states she has a cyst on her spleen and would like to have it checked again. Pt denies any other GI symptoms of concern at this time. ROS Const Constitutional: Positive for fatigue; No fever(s) or weight change ENT ENT: No difficulty swallowing Gastro GI: Positive for abdominal pain and heartburn; No belching, bloating, change in bowel habits, change in stool character, coffee ground emesis, constipation, cramping, diarrhea, difficulty swallowing, feeling full early, excessive flatus, incontinent of stools, Vomiting blood/hematemesis, Blood in stool, loose stools, Black,tarry stools, nausea/dyspepsia, pain with swallowing, vomiting or other Musc Musculoskeletal: Positive for joint pain, back pain, numbness and tingling Skin Skin: No yellowing of the eye or itchy eyes Neuro Neurology: Positive for numbness and tingling Psych Psychiatric: Positive for anxiety and No depression Endo Endocrine: Positive for fatigue; No weight change Aller/Imm Allergy/Immunologic: No itchy eyes Riley/Lymp Hematologic/Lymphatic: Positive for easy bruising; No easy bleeding Exam Const General: healthy appearing, comfortable, well developed and well groomed Nutritional Appearance: average body habitus Eyes Conjunctivae: conjunctivae normal Sclera: sclerae normal Skin General: jaundice Psych Mood: euthymic mood Affect: normal affect Assessment and Plan Assessment and Plan (1) Chronic viral hepatitis C: Status: Chronic Plan: Check PCR RNA quant for hepatitis C (2) GERD (gastroesophageal reflux disease): Status: Acute Plan: Mild gastroesophageal reflux disease resolved after (3) Abdominal pain: Status: Acute Plan: She did have an MRI that showed an abnormality in the second portion of the duodenum that is possibly secondary to a duodenal diverticulum or a ulcer. She will undergo an upper endoscopy to evaluate upper GI tract. 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 Evaluated as a possible etiology of her abdominal pain. She may need upper endoscopy. Orders: Orders Ferritin 10/11/23 B18.2 - Chronic viral hepatitis C, K21.9 - Gastro-esophageal reflux disease without esophagitis CHELLE + Protein Elect, Serum 10/11/23 B18.2 - Chronic viral hepatitis C, K21.9 - Gastro-esophageal reflux disease without esophagitis Iron Binding Capacity,Total 10/11/23 B18.2 - Chronic viral hepatitis C, K21.9 - Gastro-esophageal reflux disease without esophagitis ANCA 10/11/23 B18.2 - Chronic viral hepatitis C, K21.9 - Gastro-esophageal reflux disease without esophagitis Celiac Disease Profile 10/11/23 B18.2 - Chronic viral hepatitis C, K21.9 - Gastro-esophageal reflux disease without esophagitis CRP 10/11/23 B18.2 - Chronic viral hepatitis C, K21.9 - Gastro-esophageal reflux disease without esophagitis Erythrocyte Sed Rate 10/11/23 B18.2 - Chronic viral hepatitis C, K21.9 - Gastro-esophageal reflux disease without esophagitis LDH 10/11/23 B18.2 - Chronic viral hepatitis C, K21.9 - Gastro-esophageal reflux disease without esophagitis Allergen, Food Profile 14 10/11/23 B18.2 - Chronic viral hepatitis C, K21.9 - Gastro-esophageal reflux disease without esophagitis IBD Expanded Profile 10/11/23 B18.2 - Chronic viral hepatitis C, K21.9 - Gastro-esophageal reflux disease without esophagitis Hepatitis C,RNA PCR Viral Load 10/11/23 B18.2 - Chronic viral hepatitis C, K21.9 - Gastro-esophageal reflux disease without esophagitis SPARKLE Comprehensive Panel 10/11/23 B18.2 - Chronic viral hepatitis C, K21.9 - Gastro-esophageal reflux disease without esophagitis Abdomen/Pelvis WITH Contrast 10/11/23 B18.2 - Chronic viral hepatitis C, K21.9 - Gastro-esophageal reflux disease without esophagitis I have examined the patient and the H&P has been reviewed. There are no clinical changes since date of exam.
--- NOTE | 2023-11-15 09:10 | PCM.POST.ANE ---
Anesthesia: Postop Eval I Current Vital Signs Temperature: 98 F Pulse Rate: 67 Blood Pressure: 101/60 Respiratory Rate: 16 Pulse Ox: 95 Oxygen Delivery Method: Room Air Assessment Airway patent: Yes Spontaneous unlabored respirations: Yes Mental status: Asleep nausea: No Vomiting: No Anesthesia Complication: No Fluid Hydration Crystalloid volume administer (ml): 400 Total IV fluid infused: 400 Progress Note Anesthesia document: Postop Eval 1 completed: Yes
--- NOTE | 2023-11-15 09:19 | OP.EGD_ITS ---
Patient Name: Hortensia William Procedure Date: 11/15/2023 9:08 AM Date of : 1985 Age: 38 Procedure: Upper GI endoscopy Indications: Epigastric abdominal pain Providers: DO Karen Benton MD: Prem Smith Medicines: Monitored Anesthesia Care Patient Profile: This is a 38 year old female. Refer to note in patient chart for documentation of history and physical. Patient has symptoms [Symptoms]. Complications: No immediate complications. Procedure: Pre-Anesthesia Assessment: - Prior to the procedure, a History and Physical was performed, and patient medications and allergies were reviewed. The risks and benefits of the procedure and the sedation options and risks were discussed with the patient. All questions were answered and informed consent was obtained. Patient identification and proposed procedure were verified by the physician in the pre-procedure area. Mental Status Examination: alert and oriented. Airway Examination: normal oropharyngeal airway and neck mobility. Respiratory Examination: clear to auscultation. CV Examination: normal. Prophylactic Antibiotics: The patient does not require prophylactic antibiotics. Prior Anticoagulants: The patient has taken no anticoagulant or antiplatelet agents. ASA Grade Assessment: II - A patient with mild systemic disease. After reviewing the risks and benefits, the patient was deemed in satisfactory condition to undergo the procedure. The anesthesia plan was to use monitored anesthesia care (MAC). Immediately prior to administration of medications, the patient was re-assessed for adequacy to receive sedatives. The heart rate, respiratory rate, oxygen saturations, blood pressure, adequacy of pulmonary ventilation, and response to care were monitored throughout the procedure. The physical status of the patient was re-assessed after the procedure. After obtaining informed consent, the endoscope was passed under direct vision. Throughout the procedure, the patient's blood pressure, pulse, and oxygen saturations were monitored continuously.The upper GI endoscopy was accomplished without difficulty. The patient tolerated the procedure well. The Endoscope was introduced through the mouth, and advanced to the second part of duodenum. Scope In: 8:56:27 AM Scope Out: 9:03:45 AM Total Procedure Duration Time 0 hours 7 minutes 18 seconds Findings: The examined esophagus was normal. Scattered moderate inflammation characterized by congestion (edema) was found in the gastric body, on the greater curvature of the stomach, on the lesser curvature of the stomach and in the gastric antrum. Biopsies were taken with a cold forceps for histology. Verification of patient identification for the specimen was done. Estimated blood loss was minimal. Biopsies were taken with a cold forceps for Helicobacter pylori testing. Verification of patient identification for the specimen was done. Estimated blood loss was minimal. Patchy mildly erythematous mucosa without active bleeding and with no stigmata of bleeding was found in the duodenal bulb and in the first portion of the duodenum. Biopsies were taken with a cold forceps for histology. Verification of patient identification for the specimen was done. Estimated blood loss was minimal. Impression: - Normal esophagus. - Chronic gastritis. Biopsied. - Erythematous duodenopathy. Biopsied. Recommendation: - Discharge patient to home. - Resume previous diet. - Continue present medications. - Await pathology results. Procedure Code(s): --- Professional --- 10574, Esophagogastroduodenoscopy, flexible, transoral; with biopsy, single or multiple CPT copyright 2021 [employer]. All rights reserved. The codes documented in this report are preliminary and upon certified professional coder review may be revised to meet current compliance requirements. Tyson Tay DO 11/15/2023 9:18:55 AM This report has been signed electronically. Number of Addenda: 0 Note Initiated On: 11/15/2023 9:08 AM
--- NOTE | 2023-11-15 09:19 | OP.CCLET_ITS ---
11/15/2023 Prem Smith Re : Upper GI endoscopy procedure for Hortensia Beardr Candice This procedure was performed on Wednesday, November 15, 2023. My impressions and recommendations are as follows: Impressions : - Normal esophagus. - Chronic gastritis. Biopsied. - Erythematous duodenopathy. Biopsied. Recommendations : - Discharge patient to home. - Resume previous diet. - Continue present medications. - Await pathology results. My findings are described in the full procedure note, which is enclosed. If I can be of further assistance, please feel free to contact me at . Sincerely, Tyson Tay, 11/15/2023 9:18:55 AM This report has been signed electronically.
--- NOTE | 2023-11-15 11:41 | PCM.POSTANE2 ---
Anesthesia Postop Eval I Sum Postop Eval Completion status Anesthesia document: Postop Eval 1 completed: Yes Anesthesia Postop Eval I Summary Anesthesia Postop Eval I Summary: Anesthesia Postop Eval I: Assessment Summary Airway patent Yes 11/15/23 09:11 [email or web address] Spontaneous unlabored Yes 11/15/23 09:11 [email or web address] respirations Mental status Asleep 11/15/23 09:11 [email or web address] nausea No 11/15/23 09:11 [email or web address] Vomiting No 11/15/23 09:11 [email or web address] Anesthesia Postop Eval I: Fluid Summary Crystalloid volume administer 400 11/15/23 09:11 [email or web address] (ml) Colloids volume administered ( ml) Blood Product volume administered (ml) Total IV fluid infused 400 11/15/23 09:11 [email or web address] Anesthesia Postop Eval I: Summary Notes Anesthesia Complication No 11/15/23 09:11 [email or web address] Anesthesia Complication Comment: Post-operative progress note Anesthesia: Postop Eval II Evaluation Mental status: Awake Pain Level: 0 nausea: No Vomiting: No
== END 2023-11-15 10:00 | disposition home or self-care (01) ==
LOC: EN 07:21 → AC 07:23
PROVIDERS: Anesthesiology; PCP Nurse Practitioner Family; Referring Provider Nurse Practitioner Family; Visit Provider Internal Medicine Gastroenterology
PROC: 0DJ08ZZ Inspection of Upper Intestinal Tract, Via Natural or Artificial Opening Endoscopic (ICD-10-PCS; CPT 43235; principal; 2023-11-15 08:25)
DX: K29.50 Unspecified chronic gastritis without bleeding (principal); B18.2 Chronic viral hepatitis C; B96.81 Helicobacter pylori [H. pylori] as the cause of diseases classified elsewhere; K21.9 Gastro-esophageal reflux disease without esophagitis; K31.89 Other diseases of stomach and duodenum; B00.9 Herpesviral infection, unspecified; F17.200 Nicotine dependence, unspecified, uncomplicated
CPT/HCPCS: 43239; 81025; 88305; 88342; J7120; J2405

== ENCOUNTER → 2023-11-22 | Outpatient (CLI) | payer MEDICAID, SELFPAY ==
--- NOTE | 2023-11-22 09:56 | US_ITS ---
STUDY: ABDOMINAL ULTRASOUND - RIGHT UPPER QUADRANT; ELASTOGRAPHY REASON FOR VISIT: Female, 38 years old. Hepatomegaly. TECHNIQUE: Ultrasound evaluation of the right upper quadrant was performed with real-time and static young-scale imaging. Point quantification shear wave elastography was performed ([employer]). TECHNICAL QUALITY: Adequate. COMPARISON: Comparison is made with prior CT scan abdomen pelvis dated October 31, 2023. FINDINGS: Liver: The liver is enlarged and measures 17.3 cm. There is normal echogenicity of the liver. The bile ducts are within normal limits. There is hepatic color flow. The direction of portal flow is hepatopetal. There is no demonstrated mass lesion. Median liver stiffness measured 5.1 kPa. Gallbladder: Normal distended gallbladder. The gallbladder wall measures 1 mm. There is a negative sonographic Baeza''s sign. There is no pericholecystic fluid. There are no gallstones. There is a 3 mm x 3 mm x 2 mm gallbladder polyp. Common Bile Duct (C.B.D.): The common bile duct measures 3 mm. Pancreas: There is normal echogenicity of the visualized pancreas. There is no demonstrated pancreatic mass or cyst. Right Kidney: Normal size of the right kidney. The right kidney measures 11.5 cm x 5.2 cm x 3.6 cm. Normal renal cortex. The right cortex measures 1.2 cm. There is no demonstrated renal mass or cyst. There is no right hydronephrosis. US/ABD Limited w/ Elastography IMPRESSION: 1. Liver stiffness measures 5.1 kPa compatible with F0-F1 (Normal to mild liver fibrosis) Metavir score. 2. Hepatomegaly. 3. Small gallbladder polyp. Electronically Signed: Jin Pimentel MD at 12:31 EDT ,
== END | disposition home or self-care (01) ==
LOC: US 09:53
PROVIDERS: PCP Nurse Practitioner Family; Referring Provider Internal Medicine Gastroenterology; Visit Provider Internal Medicine Gastroenterology
DX: R16.0 Hepatomegaly, not elsewhere classified (principal)
CPT/HCPCS: 76705; 76981

== ENCOUNTER → 2024-01-19 | Outpatient (CLI) | payer MEDICAID, SELFPAY ==
[2024-01-19 17:47] LABS: HIV - WCH Non-Reactive (Nonreactive)
[2024-01-22 15:08] LABS: H. PYLORI STOOL AG Negative (Negative)
== END | disposition home or self-care (01) ==
LOC: LAB 15:56 → LABSPEC 15:57
PROVIDERS: PCP Nurse Practitioner Family; Referring Provider Internal Medicine Gastroenterology; Visit Provider Internal Medicine Gastroenterology
DX: A04.8 Other specified bacterial intestinal infections (principal); R16.0 Hepatomegaly, not elsewhere classified
CPT/HCPCS: 36415; 86703; 87338